=== PATIENT | female | born 1935 | race Caucasian/White ===

== ENCOUNTER 2017-09-04 14:14 | Emergency (ER) | payer MEDICARE, OTHER ==
[2017-09-04 14:35] VITALS: BP 106/60; PULSE 75; TEMP 98.7; BMI 21.3
--- NOTE | 2017-09-04 14:35 | PDOC ---
Rapid Medical Evaluation Chief Complaint: Pain, Acute Time Seen by Provider: 09/04/17 14:30 Medical Evaluation: Allergies Allergy/AdvReac Type Severity Reaction Status Date / Time No Known Allergies Allergy Verified 09/04/17 14:28 09/04/17 14:32 Pt c/o: left foot pain x 2 weeks, saw electronic page makeup system operator 2 days ago and placed a bandage. pt states pain continues and changed her shoes yesterday. Hx of callous sx there yrs ago, denies fever/ radiation of pain pt on brief exam: has noted opened callous to lateral aspect of left 1st toe pip joint, no s/s of infection, moderate tenderness to touch, pt ordered for: toe xray Pt to proceed to ED Discharge Disposition - Diagnosis Toe pain, left - Referrals Referrals: ON STAFF,NOT [Primary Care Provider] - - Patient Instructions - Post Discharge Activity
--- NOTE | 2017-09-04 15:32 | PDOC ---
History of Present Illness - General Chief Complaint: Pain, Acute Stated Complaint: LT FOOT SWELLING,PAIN Time Seen by Provider: 09/04/17 14:30 History Source: Patient Exam Limitations: No Limitations - History of Present Illness Initial Comments: 09/04/17 15:26 82 yr female with c/o pain to the left foot. Pt denies fever or chills, has a bunion to the left foot with scabbed ulcerated area on the bunion. Severity: Yes: mild Location: reports: feet Past History - Past Medical History Allergies/Adverse Reactions: Allergies Allergy/AdvReac Type Severity Reaction Status Date / Time No Known Allergies Allergy Verified 09/04/17 14:28 Cardiac Disorders: Yes (A-fib) CVA: No COPD: No DVT: No - Immunization History Immunization Up to Date: Yes - Suicide/Smoking/Psychosocial Hx Smoking History: Never smoked Have you smoked in the past 12 months: No Information on smoking cessation initiated: No Hx Alcohol Use: No Drug/Substance Use Hx: No Substance Use Type: None *Physical Exam - Vital Signs Last Vital Signs Temp Pulse Resp BP Pulse Ox 98.7 F 75 16 106/60 95 09/04/17 14:29 09/04/17 14:29 09/04/17 14:29 09/04/17 14:29 09/04/17 14:29 - Physical Exam General Appearance: Yes: Nourished, Appropriately Dressed, Other (uses walker at [facility], lives in assited living facility ) HEENT: positive: EOMI, FREDY Neck: positive: Supple. negative: Tender Respiratory/Chest: positive: Lungs Clear, Normal Breath Sounds. negative: Chest Tender Cardiovascular: positive: Regular Rhythm, Regular Rate Gastrointestinal/Abdominal: positive: Normal Bowel Sounds, Soft Lymphatic: negative: Adenopathy Musculoskeletal: positive: Normal Inspection, Other Extremity: positive: Normal Capillary Refill, Normal Inspection Integumentary: positive: Normal Color, Dry, Warm Neurologic: positive: Fully Oriented, Alert, Normal Mood/Affect, Normal Response , Motor Strength 5/5 Procedures - Laceration/Wound Repair Left Lateral Distal 1st digit Wound Length: to 2.5 cm Betadine Prep: Yes Sterile Dressing Applied: Yes (bacitracin and bandaid ) ED Treatment Course - RADIOLOGY Radiology Studies Ordered: Category Date Time Status FOOT-LEFT [RAD] Stat Radiology 09/04/17 15:16 Ordered Medical Decision Making - Medical Decision Making 09/04/17 15:54 cc: foot pain, great toe radiates across the top of her foot. no redness no swelling nv intact will get xrays to r/o osteomyelitis wound care done 09/04/17 15:55 *DC/Admit/Observation/Transfer Diagnosis at time of Disposition: Toe pain, left - Discharge Dispostion Disposition: HOME Condition at time of disposition: Good - Referrals Referrals: ON STAFF,NOT [Primary Care Provider] - Sidney Holley MD [Staff Physician] - - Patient Instructions Additional Instructions: follow with the application release manager as listed below next week , call tomorrow to make a follow up appointment you can also call the Wound Care department here at the hospital at [phone] to make a follow up appointment elevate the foot when you can and apply warm compresses keep the wound clean and dry avoid getting wet - Post Discharge Activity
== END 2017-09-04 16:22 | disposition home or self-care (01) ==
LOC: JERFT 14:14
DX: M79.675 Pain in left toe(s) (principal); I48.91 Unspecified atrial fibrillation; R26.2 Difficulty in walking, not elsewhere classified; Z99.89 Dependence on other enabling machines and devices
CPT/HCPCS: 73630-TC-LT; 73660-TC-FY; 87070; 87205; 99281-25